=== PATIENT | male | born 1975 | race Caucasian/White ===

== ENCOUNTER 2018-01-29 09:30 | Emergency (ER) | payer SELFPAY ==
[~2018-01-29] VITALS: Ht 190.5 cm; Wt 83.9 kg
[2018-01-29 09:40] VITALS: BP 156/83
--- NOTE | 2018-01-29 10:25 | PHYS DOC ---
Past History Past Medical History: No Pertinent History Past Surgical History: No Surgical History Alcohol Use: None Drug Use: Marijuana Adult General Chief Complaint Chief Complaint: FACE PROBLEM HPI HPI 42-year-old male presents with left-sided facial swelling. Patient woke up this morning and noticed that his left cheek was very swollen. He states that it is not painful. He does not have a fever. He does have several dental caries but denies increased sensitivity to many of his teeth. He has been eating and drinking normally. He's never had anything like this before. He has no other complaints. He denies any trauma. Review of Systems Review of Systems Constitutional: Denies fever or chills [] Eyes: Denies change in visual acuity, redness, or eye pain [] HENT: Left-sided facial swelling[] Respiratory: Denies cough or shortness of breath [] Cardiovascular: No additional information not addressed in HPI [] GI: Denies abdominal pain, nausea, vomiting, bloody stools or diarrhea [] : Denies dysuria or hematuria [] Musculoskeletal: Denies back pain or joint pain [] Integument: Denies rash or skin lesions [] Neurologic: Denies headache, focal weakness or sensory changes [] Endocrine: Denies polyuria or polydipsia [] All other systems were reviewed and found to be within normal limits, except as documented in this note. Allergies Allergies Allergies Coded Allergies Type Severity Reaction Last Updated Verified No Known Drug Allergies 01/29/18 No Physical Exam Physical Exam Constitutional: Well developed, well nourished, no acute distress, non-toxic appearance. [] HENT: Normocephalic, atraumatic, bilateral external ears normal, oropharynx moist. Dental caries, swollen left face into the supraorbital region. This extends from the edge of the nose and around to the angle of the mandible. Tender to palpation of the maxillary gums. No tenderness over the parotid gland [] Eyes: PERRLA, EOMI, conjunctiva normal, no discharge. [] Neck: Normal range of motion, no tenderness, supple, no stridor. [] Cardiovascular:Heart rate regular rhythm, no murmur [] Lungs & Thorax: Bilateral breath sounds clear to auscultation [] Abdomen: Bowel sounds normal, soft, no tenderness, no masses, no pulsatile masses. [] Skin: Warm, dry, no erythema, no rash. [] Back: No tenderness, no CVA tenderness. [] Extremities: No tenderness, no cyanosis, no clubbing, ROM intact, no edema. [] Neurologic: Alert and oriented X 3, normal motor function, normal sensory function, no focal deficits noted. [] Psychologic: Affect normal, judgement normal, mood normal. [] Current Patient Data Vital Signs Vital Signs Date Time Temp Pulse Resp B/P (MAP) Pulse Ox O2 Delivery O2 Flow Rate FiO2 01/29/18 09:40 98.2 83 18 98 Room Air EKG EKG [] Radiology/Procedures Radiology/Procedures [] Course & Med Decision Making Course & Med Decision Making Pertinent Labs and Imaging studies reviewed. (See chart for details) The patient appears to have a dental infection. I don't palpate any drainable abscess. I will treat him with Augmentin for 7 days. If his condition worsens. Again so systemic fever he will return to the emergency room. He will also start to search for a dentist today. [] Dragon Disclaimer Dragon Disclaimer This electronic medical record was generated, in whole or in part, using a voice recognition dictation system. Departure Departure: Referrals: PCP,SHARIF (PCP) STEPHANIE SWARTZ DO Jan 29, 2018 10:25
[2018-01-29] MEDS ORDERED: AMOX1TAB61 PO (10:28)
== END 2018-01-29 10:31 | disposition home or self-care (01) ==
LOC: ER 09:30
DX: K02.9 Dental caries, unspecified (principal)
CPT/HCPCS: 99283

== ENCOUNTER 2020-09-01 10:38 | Emergency (ER) | payer SELFPAY ==
[~2020-09-01] VITALS: Ht 190.5 cm; Wt 83.2 kg
[~2020-09-01 10:38] MED LIST: AMOX1TAB61 PO
[2020-09-01 11:14] VITALS: BP 153/74
[2020-09-01] MEDS: PENICILLIN V K 250 MG TABLET. PO ONE (12:45)
[2020-09-01] MEDS: HYDROcodone/APAP 5/325MG 1 TAB TABLET PO ONE (12:45)
[2020-09-01] MEDS ORDERED: HYDR-2759 PO (12:50)
[2020-09-01] MEDS ORDERED: PENI500T PO (12:50)
--- NOTE | 2020-09-01 12:54 | PHYS DOC ---
Past History Past Medical History: No Pertinent History (DEAN SULLIVAN APRN) Past Surgical History: No Surgical History (DEAN SULLIVAN APRN) Alcohol Use: None Drug Use: Marijuana (DEAN SULLIVAN APRN) General Adult EDM: Chief Complaint: DENTAL PROBLEM HPI: HPI: Patient is a 45-year-old male who presents to the ER today for dental pain. He reports that he was eating yesterday and felt a crack and started having right lower back dental pain. The pain is constant, does not radiate, he rates it 10 out of 10, he has been doing salt water gargles and using Orajel. He denies fevers, sore throat, shortness of breath, difficulty swallowing, voice changes, difficulty maintaining secretions, facial swelling. (DEAN SULLIVAN APRN) Review of Systems: Review of Systems: 14 body systems of the review of systems have been reviewed. See HPI for pertinent positive and negative responses, otherwise all other systems are negative, nonpertinent or noncontributory (DEAN SULLIVAN APRN) Current Medications: Current Meds: Current Medications Medications (Trade) Dose Ordered Sig/Caitlin Start Time Stop Time Status Last Admin Dose Admin Acetaminophen/ Hydrocodone Bitart (Lortab 5/325) 2 tab 1X ONCE 09/01/20 12:30 09/01/20 12:31 UNV Penicillin V Potassium (Veetid) 500 mg 1X ONCE 09/01/20 12:30 09/01/20 12:31 UNV (DEAN SULLIVAN APRN) Allergies: Allergies: Allergies Coded Allergies Type Severity Reaction Last Updated Verified No Known Drug Allergies 01/29/18 No (DEAN SULLIVAN APRN) Physical Exam: PE: Constitutional: Well developed, well nourished, no acute distress, non-toxic appearance. [] HENT: Normocephalic, atraumatic, bilateral external ears normal, oropharynx moist, nose normal, uvula midline, no trismus, maintaining secretions, no phonation changes, no facial swelling, no. Apical abscess, dental decay, , missing teeth, cracked 30th tooth with exposed pulp. [] Eyes: PERRL, conjunctiva normal, no discharge. [] Neck: Normal range of motion, no tenderness, supple, no palpable lymphadenopathy, no stridor. [] Cardiovascular: Normal peripheral perfusion [] Lungs & Thorax: Normal work of breathing, no tachypnea [] Skin: Warm, dry, no erythema, no rash. [] Extremities: No tenderness, no cyanosis, no clubbing, ROM intact, no edema. [] Neurologic: Alert and oriented X 3, normal motor function, normal sensory function, no focal deficits noted. [] Psychologic: Affect normal, judgement normal, mood normal. [] (DEAN SULLIVAN APRN) Current Patient Data: Vital Signs: Vital Signs Date Time Temp Pulse Resp B/P (MAP) Pulse Ox O2 Delivery O2 Flow Rate FiO2 09/01/20 11:14 98.3 74 16 153/74 (100) 98 Room Air (DEAN SULLIVAN APRN) EKG: EKG: [] (DEAN SULLIVAN APRN) Radiology/Procedures: Radiology/Procedures: [] (DEAN SULLIVAN APRN) Heart Score: C/O Chest Pain: No Risk Factors: Risk Factors: DM, Current or recent (<one month) smoker, HTN, HLP, family history of CAD, obesity. Risk Scores: Score 0 - 3: 2.5% MACE over next 6 weeks - Discharge Home Score 4 - 6: 20.3% MACE over next 6 weeks - Admit for Clinical Observation Score 7 - 10: 72.7% MACE over next 6 weeks - Early Invasive Strategies (DEAN SULLIVAN APRN) Course & Med Decision Making: Course & Med Decision Making Pertinent Labs and Imaging studies reviewed. (See chart for details) Patient was seen in the ER today for dental pain after he cracked it while eating yesterday. On physical assessment patient does not have a visible abscess, difficulty maintaining secretions, trismus, phonation changes. Patient does have dental decay, cracked 30th tooth with exposed pulp. Patient treated with penicillin VK and given [place] for pain. He was provided with information regarding dental clinic follow-up. Patient agreeable to plan. (DEAN SULLIVAN APRN) Course & Med Decision Making I oversaw on the above date of service of this patient. This patient was evaluated, examined, treated, and dispositioned from the emergency department by the mid-level practitioner. I reviewed ER case and directed the care of patient prior to ER departure. I reviewed note and agree to findings, plan of care, and disposition as stated. Electronically signed, Gilbert Mandujano DO (GILBERT MANDUJANO DO) Alessandro Disclaimer: Alessandro Disclaimer: This electronic medical record was generated, in whole or in part, using a voice recognition dictation system. (DEAN SULLIVAN APRN) Departure Departure: Impression: Primary Impression: Dentalgia Disposition: HOME / SELF CARE / HOMELESS Condition: GOOD Referrals: PCP,NO (PCP) Patient Instructions: Dental Abscess, Dental Pain Additional Instructions: ER today for a dental infection and dental pain. You were given [place] for pain and penicillin for the dental infection. You are being sent home with a prescription for [place]. You can take 1 tablet every 6 hours as needed for severe pain. You can also take ibuprofen for mild pain at home. [place] does contain codeine so it may make you sleepy. Do not take it with any other things that cause sedation such as alcohol. Also do not take this medication when you need to be alert. Take penicillin as directed for the dental infection. You need to follow-up with a dentist as soon as possible, please call when you get home today and make an appointment. You have been given information regarding dental clinics today. If your symptoms persist or worsen or you develop fever, deep breathing, difficulty swallowing, severe headache, nausea, vomiting please return Scripts Penicillin V Potassium (PENICILLIN V POTASSIUM) 500 Mg Tablet 1 TAB PO TID for dental infection for 7 Days, #21 TAB 0 Refills Prov: DEAN SULLIVAN APRN 09/01/20 Hydrocodone/Acetaminophen (Hydrocodone-Acetamin 5-325 mg) 1 Each Tablet 1 EACH PO Q6HRS for dental pain, #5 TAB 0 Refills Prov: DEAN SULLIVAN APRN 09/01/20 DEAN SULLIVAN APRN Sep 01, 2020 12:54 GILBERT MANDUJANO DO Sep 02, 2020 06:49
== END 2020-09-01 13:02 | disposition home or self-care (01) ==
LOC: ER 10:38
DX: K04.7 Periapical abscess without sinus (principal); F12.10 Cannabis abuse, uncomplicated
CPT/HCPCS: 99283